=== PATIENT | female | born 1960 | race Caucasian/White ===

== ENCOUNTER 2017-09-09 11:02 | Emergency (ER) | payer OTHER ==
[~2017-09-09] VITALS: Ht 175.3 cm; Wt 80.0 kg
[2017-09-09 11:05] VITALS: BP 105/65; PULSE 102; RESP 24; TEMP 98.4; O2SAT 99
[2017-09-09] MEDS ORDERED: ACETAMINOPHEN/HYDROcodone 325 MG/5 MG TAB PO ONE (11:30)
--- NOTE | 2017-09-09 12:01 | RADRPT ---
EXAM DATE/TIME: 09/09/2017 11:40 [facility] COMPARISON: No previous studies available for comparison. INDICATIONS : Tripped and fell. RADIATION DOSE: 64.63 CTDIvol (mGy) MEDICAL HISTORY : Neeta Mackay MS SURGICAL HISTORY : Tubal ligation. ENCOUNTER: Initial ACUITY: 1 day PAIN SCALE: 5/10 LOCATION: cranial TECHNIQUE: Multiple contiguous axial images were obtained of the head. Using automated exposure control and adj ustment of the mA and/or kV according to patient size, radiation dose was kept as low as reasonably a chievable to obtain optimal diagnostic quality images. DICOM format image data is available electro nically for review and comparison. FINDINGS: CEREBRUM: The ventricles are normal for age. No evidence of midline shift, mass lesion, hemorrhage or acute in farction. No extra-axial fluid collections are seen. POSTERIOR FOSSA: The cerebellum and brainstem are intact. The 4th ventricle is midline. The cerebellopontine angle i s unremarkable. EXTRACRANIAL: The visualized portion of the orbits is intact. SKULL: The calvaria is intact. No evidence of skull fracture. CONCLUSION: No acute disease. Enrrique Mendez MD on September 09, 2017 at 11:56 Board Certified Radiologist. This report was verified electronically.
--- NOTE | 2017-09-09 12:29 | RADRPT ---
EXAM DATE/TIME: 09/09/2017 11:51 [facility] COMPARISON: No previous studies available for comparison. INDICATIONS : Pain from fall. MEDICAL HISTORY : None. SURGICAL HISTORY : None. ENCOUNTER: Initial ACUITY: 1 day PAIN SCORE: 8/10 LOCATION: Right femur. FINDINGS: Two view examination of the right femur demonstrates no evidence of fracture or dislocation. Bony mi neralization is normal. The soft tissue structures are intact. There is a joint effusion at the leve l of the knee joint. CONCLUSION: 1. No acute fracture or joint dislocation. 2. Small to moderate joint effusion at the knee. Arnoldo Rodriguez MD on September 09, 2017 at 12:12 Board Certified Radiologist. This report was verified electronically.
--- NOTE | 2017-09-09 12:30 | RADRPT ---
EXAM DATE/TIME: 09/09/2017 11:52 [facility] COMPARISON: No previous studies available for comparison. INDICATIONS : Pain from fall. MEDICAL HISTORY : None. SURGICAL HISTORY : None. ENCOUNTER: Initial ACUITY: 1 day PAIN SCORE: 8/10 LOCATION: Right knee. FINDINGS: Four view examination of the right knee demonstrates no evidence of fracture or dislocation. Bony mi neralization is normal. The articular surfaces are intact. There is a small to moderate joint effusi on.. CONCLUSION: 1. Small to moderate joint effusion. 2. No acute fracture or joint dislocation. Arnoldo Rodriguez MD on September 09, 2017 at 12:28 Board Certified Radiologist. This report was verified electronically.
[2017-09-09] MEDS ORDERED: KETOROLAC TROMETHAMINE 60 MG/2 ML (IM) VIAL IM ONE (13:15)
--- NOTE | 2017-09-09 13:21 | PD ---
HPI Chief Complaint: Fall Time Seen by Provider: 11:19 Travel History International Travel<30 days: No Contact w/Intl Traveler<30days: No Traveled to known affect area: No History of Present Illness HPI Patient is a 57-year-old female who comes in complaining of right knee pain after she slipped off a chair yesterday and landed on her right side. She says the pain is so bad she cannot walk. She tried taking Motrin last night without relief of her pain. She denies any loss of consciousness. She was in her usual state of health prior to the event. Any movement makes the pain worse. Severity is mild to moderate. 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) ?: Not : 5 Para: 2 Miscarriage: 2 : 1 Tubal Ligation: Yes Past Surgical History Section: Yes (X 1) Tonsillectomy: Yes Other Surgery: Yes (C-5-C-6 FUSION 1998, C-6-C-7 2012) Social History Alcohol Use: No Tobacco Use: Yes (1.5 PPD) Substance Use: No Allergies-Medications (Allergen,Severity, Reaction): Coded Allergies: Sulfa (Sulfonamide Antibiotics) (Verified Allergy, Unknown, 09/09/17) Review of Systems General / Constitutional: No: Fever, Chills HENT: No: Headaches, Lightheadedness Cardiovascular: No: Chest Pain or Discomfort Respiratory: No: Shortness of Breath Gastrointestinal: No: Nausea, Vomiting Musculoskeletal: Positive: Pain, No: Edema Skin: No Rash, No Change in Pigmentation Neurologic: No: Weakness, Dizziness Physical Exam Narrative GENERAL: Awake and alert, in no acute distress. SKIN: Focused skin assessment warm/dry. No wounds or signs of infection. HEAD: Atraumatic. Normocephalic. EYES: Pupils equal and round. No scleral icterus. ENT: Mucous membranes pink and moist. NECK: Trachea midline. No JVD. No cervical spine tenderness. CARDIOVASCULAR: Regular rate and rhythm. No murmur appreciated. RESPIRATORY: No accessory muscle use. Clear to auscultation. Breath sounds equal bilaterally. MUSCULOSKELETAL: No obvious deformities. No clubbing. No cyanosis. No edema. Pain with movement of her right knee. There is no swelling or joint laxity. Pulses intact. NEUROLOGICAL: Awake and alert. No obvious cranial nerve deficits. Motor grossly within normal limits. Normal speech. Data Data Last Documented VS Vital Signs Date Time Temp Pulse Resp B/P (MAP) Pulse Ox O2 Delivery O2 Flow Rate FiO2 09/09/17 11:05 98.4 102 24 105/65 (78) [address] Brain W/O Iv Contrast(Rout) (09/09/17 ) Femur (Ap & Lat/2vws) (09/09/17 ) Knee, Complete (4vws) (09/09/17 ) Acetamin-Hydrocod 325-5 Mg ([place] 5-325 (09/09/17 11:30) Ketorolac Inj (Toradol Inj) (09/09/17 13:15) Crutches (09/09/17 13:15) Donnell Bandage (09/09/17 13:15) MDM Medical Decision Making Medical Screen Exam Complete: Yes Emergency Medical Condition: Yes Differential Diagnosis Knee sprain versus fracture versus bruising Narrative Course Patient is a 57-year-old female who comes in complaining of knee pain after a fall. Exam shows pain with movement. X-ray of the knee and femur performed show small joint effusion, no other abnormalities. CT head performed shows no acute abnormalities. Patient offered a [place] for pain, however she refused it. She is given Toradol. Given an Donnell wrap and crutches. Advised to follow up with orthopedics. Advised to take Tylenol or Ibuprofen as needed for pain. Advised to return as needed for any worsening symptoms. Diagnosis Primary Impression: Knee sprain Qualified Codes: S83.91XA - Sprain of unspecified site of right knee, initial encounter Referrals: Houston Rolle MD call for appointment Patient Instructions: General Instructions, Knee Sprain (ED) Additional Instructions: Take Tylenol or ibuprofen as needed for pain. Follow-up with orthopedics as needed. Return to the ED as needed for any worsening symptoms. Disposition: 01 DISCHARGE HOME Condition: Stable Julissa Christianson MD Sep 09, 2017 13:20
== END 2017-09-09 14:16 | disposition home or self-care (01) ==
LOC: NEPD 11:02
DX: S83.91XA Sprain of unspecified site of right knee, initial encounter (principal); W07.XXXA Fall from chair, initial encounter; G61.0 Guillain-Barre syndrome; F17.200 Nicotine dependence, unspecified, uncomplicated
CPT/HCPCS: 70450; 73552; 73564; 96372; 99284; E0113; J1885